=== PATIENT | male | born 1955 | race Caucasian/White ===

== ENCOUNTER → 2024-03-04 12:03 | Outpatient (CLI) | payer MEDICARE, SELFPAY ==
--- NOTE | 2024-03-04 | DI.US.S_ITS ---
PROCEDURE: US ABD AORTA ANEURYSM SCREEN INDICATIONS: personal nicotine dependence TECHNIQUE: Real time scanning was performed of the aorta and iliac arteries, with image documentation. COMPARISON: None. FINDINGS: Aorta: Proximal aortic diameter measures 3 x 2.5 cm. Mid-aorta measures 2.5 x 2.7 cm. Distal aortic diameter is 1.8 x 2.1 cm. Iliac arteries: Right common iliac artery measures 1.3 cm. Left common iliac artery measures 1.5 cm. Note is also made of a fat containing umbilical hernia, which is partially reducible. The hernia defect measures 2 cm. IMPRESSION: There is a minimal abdominal aortic aneurysm seen, measuring 3 cm proximally. Partially reducible fat containing umbilical hernia partially seen. Dictated by: Priyank Grimes M.D. on 03/04/2024 at 15:38 Approved by: Priyank Grimes M.D. on 03/04/2024 at 15:39
== END ==
LOC: US 12:05
PROVIDERS: PCP Family Medicine; Referring Provider Family Medicine; Visit Provider Family Medicine
DX: Z13.6 Encounter for screening for cardiovascular disorders (principal); K42.9 Umbilical hernia without obstruction or gangrene; Z87.891 Personal history of nicotine dependence
CPT/HCPCS: 76706